=== PATIENT | female | born 1970 | race Two or more races ===

== ENCOUNTER 2018-06-13 09:25 | Outpatient (CLI) | payer OTHER | END 2018-06-13 09:41 | disposition home or self-care (01) | LOC: RX STUDY 09:25 | DX: R13.19 Other dysphagia (principal) ==

== ENCOUNTER 2018-06-13 09:52 | Outpatient (CLI) | payer OTHER | END 2018-06-13 10:01 | disposition home or self-care (01) | LOC: LAB 09:52 | DX: E04.1 Nontoxic single thyroid nodule (principal); E03.8 Other specified hypothyroidism ==

== ENCOUNTER 2019-04-08 16:15 | Emergency (ER) | payer OTHER ==
[~2019-04-08] VITALS: Ht 165.1 cm; Wt 70.3 kg
[2019-04-08] MEDS ORDERED: SYNTHROID112 MCG PO (17:00)
[2019-04-08] MEDS ORDERED: LIPITOR20 MG (17:00)
== END 2019-04-08 19:30 | disposition home or self-care (01) ==
LOC: ER 16:15
DX: R06.02 Shortness of breath (principal)

== ENCOUNTER 2021-06-17 10:42 | Outpatient (CLI) | payer OTHER ==
[~2021-06-17 10:42] MED LIST: LIPITOR20 MG; SYNTHROID112 MCG PO
== END 2021-06-17 10:46 | disposition home or self-care (01) ==
LOC: SONOGRAMA 10:42
PROVIDERS: ATTEND Pathology Anatomic Pathology & Clinical Pathology
DX: E04.1 Nontoxic single thyroid nodule (principal)